=== PATIENT | male | born 1970 | race Caucasian/White ===

== ENCOUNTER 2019-12-18 13:23 | Emergency (ER) | payer BC ==
[~2019-12-18] VITALS: Ht 165.1 cm; Wt 120.3 kg
[2019-12-18 13:23] VITALS: BP 151/87
[2019-12-18] MEDS ORDERED: MONT10TA4 (13:31)
[2019-12-18] MEDS ORDERED: METF10004 (13:31)
[2019-12-18] MEDS ORDERED: PIOG1TAB37 (13:31)
[2019-12-18] MEDS ORDERED: ATOR1TAB19 (13:31)
[2019-12-18] MEDS ORDERED: ARIP1TAB4 (13:31)
[2019-12-18] MEDS ORDERED: CITA40TA6 (13:31)
[2019-12-18] MEDS ORDERED: LISI10TA4 (13:31)
== END 2019-12-18 17:00 | disposition home or self-care (01) ==
LOC: M ED 13:23
DX: F32.9 Major depressive disorder, single episode, unspecified (principal); E11.9 Type 2 diabetes mellitus without complications; I10 Essential (primary) hypertension; Z79.84 Long term (current) use of oral hypoglycemic drugs; Z79.899 Other long term (current) drug therapy

== ENCOUNTER 2020-11-24 11:05 | Emergency (ER) | payer BC, OTHER, SELFPAY ==
[~2020-11-24] VITALS: Ht 165.1 cm; Wt 115.6 kg
[~2020-11-24 11:05] MED LIST: ARIP1TAB4; ATOR1TAB19; CITA40TA6; LISI10TA22; METF10004; MONT10TA10; PIOG1TAB37
[2020-11-24 18:57] LABS: BASO # 0.1 10^3/uL (0.0-0.2); BASO % 0.6 % (0.0-1.0); EOS # 0.2 10^3/uL (0.0-0.5); EOS % 2.6 % (0.0-3.0); HEMATOCRIT 48.9 % (42.0-52.0); HEMOGLOBIN 16.1 g/dl (13.5-17.5); LYMPH # 2.4 10^3/uL (1.5-5.0); LYMPH % 27.6 % (24.0-44.0); MEAN CORPUSCULAR HEMOGLOBIN 28.2 pg (27.0-33.0); MEAN CORPUSCULAR HGB CONC 32.9 g/dl (32.0-36.5); MEAN CORPUSCULAR VOLUME 85.8 fl (80.0-96.0); MONO # 0.6 10^3/uL (0.0-0.8); MONO % 6.5 % (2.0-8.0); NEUTROPHILS # 5.5 10^3/uL (1.5-8.5); NEUTROPHILS % 62.5 % (36.0-66.0); PLATELET COUNT, AUTOMATED 163 10^3/uL (150-450); WHITE BLOOD COUNT 8.8 10^3/uL (4.0-10.0)
[2020-11-24 19:33] LABS: ALBUMIN 3.8 GM/DL (3.2-5.2); ALT/SGPT 40 U/L (12-78); BILIRUBIN,DIRECT 0.2 MG/DL (0.0-0.2); BILIRUBIN,TOTAL 0.6 MG/DL (0.2-1.0); BLOOD UREA NITROGEN 11 MG/DL (7-18); CALCIUM LEVEL 8.7 MG/DL (8.5-10.1); CARBON DIOXIDE LEVEL 30 MEQ/L (21-32); CHLORIDE LEVEL 106 MEQ/L (98-107); CK-MB VALUE MASS < 1.0 NG/ML (<3.6); CPK CREATINE PHOSPHOKINASE 61 U/L (39-308); CREATININE FOR GFR 0.89 MG/DL (0.70-1.30); GLOMERULAR FILTRATION RATE > 60.0 (>56); GLUCOSE, FASTING 98 MG/DL (70-100); MB/CK RELATIVE INDEX 1.64 (< OR =4); POTASSIUM SERUM 3.8 MEQ/L (3.5-5.1); SODIUM LEVEL 141 MEQ/L (136-145); TOTAL PROTEIN 7.4 GM/DL (6.4-8.2); TROPONIN I < 0.02 NG/ML (< 0.10)
--- NOTE | 2020-11-24 22:13 | ECGEPIP ---
[facility] - ED Test Date: 2020-11-24 Pat Name: MICHELLE PEACE Department: Room: - Gender: Male Skid Adzer: KIARA : 1970 Requested By: GARRETT Ellis Order Number: [id number] Reading MD: Garrett Rodríguez Measurements Intervals [place] Rate: 55 P: 56 VT: 138 QRS: -11 QRSD: 86 T: 33 QT: 446 QTc: 426 Interpretive Statements Sinus bradycardia Low QRS complex voltage in the limb leads Nonspecific T wave abnormality Comparison tracing not on file Electronically Signed on 11-24-2020 22:13:21 EDT by Garrett Rodríguez
[2020-11-24 22:16] VITALS: BP 154/76
--- NOTE | 2020-11-24 22:23 | REPVR ---
PROCEDURE INFORMATION: Exam: XR Chest Exam date and time: 11/24/2020 8:04 PM Age: 50 years old Clinical indication: Other: Elevated BP TECHNIQUE: Imaging protocol: XR of the chest. Views: 1 view. COMPARISON: No relevant prior studies available. FINDINGS: Lungs: Unremarkable. No consolidation. Pleural spaces: Unremarkable. No pleural effusion. No pneumothorax. Heart/Mediastinum: Unremarkable. No cardiomegaly. Bones/joints: Unremarkable. Soft tissues: There are generous overlying soft tissues. IMPRESSION: Negative chest. Electronically signed by: Per Verma On 11/24/2020 22:22:39 PM
== END 2020-11-24 22:32 | disposition home or self-care (01) ==
LOC: M ED 11:05
DX: F41.9 Anxiety disorder, unspecified (principal); I10 Essential (primary) hypertension; R00.1 Bradycardia, unspecified; E11.9 Type 2 diabetes mellitus without complications; E78.5 Hyperlipidemia, unspecified; F32.9 Major depressive disorder, single episode, unspecified; Z79.84 Long term (current) use of oral hypoglycemic drugs; Z79.899 Other long term (current) drug therapy

== ENCOUNTER → 2022-01-14 | Outpatient (REF) | payer OTHER ==
[~2022-01-14] MED LIST changes: -MONT10TA10; +MONT10TA97
[2022-01-14 14:54] LABS: HEMOGLOBIN A1c 5.9 % (4.0-6.0)
== END ==
LOC: M LABWUC 12:13
PROVIDERS: ATTEND Physician Assistant
DX: E11.9 Type 2 diabetes mellitus without complications (principal)

== ENCOUNTER → 2022-06-17 | Outpatient (CLI) | payer OTHER | LOC: M WHC 10:56 | PROVIDERS: ATTEND Physician Assistant | DX: Z87.442 Personal history of urinary calculi (principal) ==